=== PATIENT | male | born 1970 | race Two or more races ===

== ENCOUNTER 2019-02-19 16:56 | Emergency (ER) | payer SELFPAY ==
[~2019-02-19] VITALS: Ht 188 cm; Wt 95.3 kg
[2019-02-19 17:20] VITALS: BP 145/95
[2019-02-19] MEDS ORDERED: ACETAMINOPHEN/CODEINE#3 (300/30mg) TAB PO ONE (18:30)
[2019-02-19] MEDS ORDERED: BENZOCAINE (DENTAL) 20 % SPRAY 60ML MT ONE (18:30)
[2019-02-19] MEDS ORDERED: cefTRIAXone SOD 1,000 MG VL IM ONE (18:30)
[2019-02-19] MEDS ORDERED: DexAMETHasone SOD PHOS 10MG/1ML VIAL INJ IM ONE (18:30)
== END 2019-02-19 19:26 | disposition home or self-care (01) ==
LOC: ER 16:56
DX: K04.7 Periapical abscess without sinus (principal); K06.010 Localized gingival recession, unspecified
CPT/HCPCS: 41800; 96372; 99283; J0696; J1100